=== PATIENT | female | born 2000 | race American Indian/Alaskan Native ===

== ENCOUNTER 2019-06-04 05:33 | Emergency (ER) | payer SELFPAY ==
[2019-06-04 05:48] VITALS: BP 127/93
--- NOTE | 2019-06-04 07:24 | Emergency Department Report ---
Chief Complaint: Sore Throat Stated Complaint: SORE THROAT Time Seen by Provider: 06/04/19 07:11 - HPI History of Present Illness: This is a 18-year-old -B[place] female who presents to the emergency room with a sore throat that started yesterday. Patient states she is recovering from a upper respiratory infection that started last week. She is currently taking amie-fro-nspsrnv cold and flu medications last taking yesterday morning. She reports cough and sore throat as associated symptoms. Denies fever, chills, nausea, vomiting, diarrhea, abdominal pain, or myalgia. - ROS Review of Systems: ROS: Stated complaint: COLD SYMPTOMS Other details as noted in HPI Constitutional: denies: chills, fever. ENT: throat pain, congestion. denies: ear pain, dental pain, hearing loss, epistaxis Respiratory: denies: cough, shortness of breath, wheezing Cardiovascular: denies: chest pain, palpitations Gastrointestinal: denies: abdominal pain, vomiting, diarrhea, hematemesis, nausea. Genitourinary: denies: urgency, dysuria Musculoskeletal: denies: back pain, joint swelling, arthralgia, myalgia. Skin: denies: rash, lesions Neurological: denies: weakness, paresthesias, headache. Psychiatric: denies: anxiety, depression - Exam Vital Signs: Vital Signs 06/04/19 05:37 Temperature 97.5 F L Pulse Rate 79 Respiratory 18 Rate Blood Pressure 127/93 O2 Sat by Pulse 100 Oximetry Physical Exam: General: Vital signs noted. No distress. Alert and acting appropriately. HEENT: Yes Moist Mucous Membranes, Yes Rhinorrhea (Turbinates congested with clear discharge), No Pharyngeal Erythema, Pharyngeal Exudates, No Conjuctival Injection, No Frontal Tenderness, No Maxillary Tenderness Ear: Neither TM Bulge, Neither TM Erythema, Neither EAC Pain, Neither EAC Discharge Neck: Yes Supple, No Adenopathy Lungs: Yes Good Air Exchange, No Wheezes, No Ronchi, No Stridor, No Cough, No Labored Respirations, No Retractions, No Use of Accessory Muscles, No Other Abnormal Lung Sounds Heart: Yes Regular, No Murmur Abdomen: Yes Normal Bowel Sounds, No Tenderness, No Peritoneal Signs Skin: No Rash, No Edema Neurologic: Alert and oriented, no deficits. Musculoskeletal: Unremarkable. MSE screening note: Focused history and physical exam performed. Due to findings the following was ordered: ED Medical Decision Making - Medical Decision Making 18 y.o. female that presents with sore throat and cough for 1 day. Patient examined by me and stable. No distress noted. Patient is afebrile. No oral pharyngeal swelling, erythema, or exudate, uvula midline, lungs clear throughout. This is a nonemergent complaint. Patient instructed to continue taking [id number]-[id number] cold and flu medications. Follow-up with the primary care doctor. Discharged home stable with strict return instructions. Encouraged to do supportive care for URI. Follow up with Primary Care Provider in 2-3 days. ED Disposition for MSE Disposition: MED SCREENING EXAM-LEFT Is pt being admited?: No Condition: Stable Instructions: Upper Respiratory Infection (ED), Cold Symptoms (ED) Additional Instructions: Increase fluid intake and rest. Wash hands frequently. Continue taking Tylenol or ibuprofen to control fever. Follow-up with Primary Care Provider. Return to ER if fever, SOB, or difficulty breathing after 48 hours of supportive care. Referrals: [facility] [Outside] - 3-5 Days [facility] [Outside] - 3-5 Days [facility] [Outside] - 3-5 Days Forms: Work/School Release Form(ED) Time of Disposition: 07:24
== END 2019-06-04 07:29 | disposition left against medical advice (07) ==
LOC: ED 05:33
DX: J02.9 Acute pharyngitis, unspecified (principal)
CPT/HCPCS: 99282

== ENCOUNTER 2020-05-23 11:58 | Emergency (ER) | payer SELFPAY ==
[2020-05-23 12:36] VITALS: BP 128/84
--- NOTE | 2020-05-23 12:58 | Emergency Department Report ---
ED Female HPI - General Chief complaint: Urogenital-Female Stated complaint: POSSIBLE UTI Time Seen by Provider: 05/23/20 12:54 Source: patient Mode of arrival: Ambulatory Limitations: No Limitations - History of Present Illness Initial comments: 19-year-old -German female comes in complaining of dysuria since Tuesday. Denies any abdominal pain back pain no nausea no vomiting. Last menstrual period started today 05/23/2020. No concerns for STD. MD Complaint: dysuria Onset/Timin -: days(s) Consistency: intermittent Worsens with: urination Are you Now?: No Last Menstrual Period: 05/23/20 EDC: 02/27/21 Associated Symptoms: denies: nausea/vomiting, fever/chills - Related Data Sexually active: Yes : 0 Allergies Allergy/AdvReac Type Severity Reaction Status Date / Time amoxicillin Allergy Hives Verified 06/04/19 05:43 ED Review of Systems ROS: Stated complaint: POSSIBLE UTI Other details as noted in HPI Comment: All other systems reviewed and negative ED Past Medical Hx - Past Medical History Previous Medical History?: Yes Hx Asthma: Yes - Surgical History Past Surgical History?: Yes Additional Surgical History: Tonsillectomy, Adenoidectomy - Social History Smoking Status: Never Smoker Substance Use Type: None ED Physical Exam - General Limitations: No Limitations General appearance: alert, in no apparent distress - Head Head exam: Present: atraumatic, normocephalic - Eye Eye exam: Present: normal appearance - ENT ENT exam: Present: mucous membranes moist - Respiratory Respiratory exam: Absent: accessory muscle use - Extremities Exam Extremities exam: Present: normal inspection, full ROM - Back Exam Back exam: Present: normal inspection - Neurological Exam Neurological exam: Present: alert, oriented X3, normal gait - Psychiatric Psychiatric exam: Present: normal affect, normal mood - Skin Skin exam: Present: warm, dry, intact, normal color. Absent: rash ED Course Vital Signs 05/23/20 12:33 Temperature 98.3 F Pulse Rate 75 Respiratory 18 Rate Blood Pressure 128/84 O2 Sat by Pulse 100 Oximetry ED Medical Decision Making - Medical Decision Making 19-year-old -German female comes in complaining of dysuria since Tuesday. Denies any abdominal pain back pain no nausea no vomiting. Last menstrual period started today 05/23/2020. No concerns for STD. Past medical history of asthma. Critical care attestation.: If time is entered above; I have spent that time in minutes in the direct care of this critically ill patient, excluding procedure time. ED Disposition Clinical Impression: Dysuria Disposition: - TO HOME OR SELFCARE Is pt being admited?: No Does the pt Need Aspirin: No Condition: Stable Instructions: Dysuria Additional Instructions: Urinalysis is negative for any infection. Negative test. Recommend following up with [facility]. Referrals: [facility] [Provider Group] - 3-5 Days [facility] [Provider Group] - 3-5 Days [facility] [Provider Group] - 3-5 Days
[2020-05-23 13:54] LABS: Bilirubin,Urine NEG (Negative); Blood,Urine LG (Negative); Color,Urine Yellow (Yellow); Mucus,Urine 1+ /HPF; Protein,Urine <15 mg/dL mg/dL (Negative); Urobilinogen,Urine < 2.0 mg/dL (<2.0)
[2020-05-23 14:03] LABS: HCG Qualitative,Urine Negative (Negative)
== END 2020-05-23 14:37 | disposition home or self-care (01) ==
LOC: ED 11:58
DX: R30.0 Dysuria (principal); J45.909 Unspecified asthma, uncomplicated; Z88.1 Allergy status to other antibiotic agents
CPT/HCPCS: 81001; 81025; 99283